=== PATIENT | male | born 1960 | race Caucasian/White ===

== ENCOUNTER 2016-09-28 12:24 | Inpatient (IN) | payer MEDICAID ==
[~2016-09-28] VITALS: Ht 170.2 cm; Wt 70.5 kg
[2016-09-28 12:42] LABS: GLUCOSE,POINT OF CARE 127 MG/DL (70-110)
[2016-09-28] MEDS ORDERED: LORazepam 2 MG/ML VIAL IM ONE (14:45)
[2016-09-28 15:31] LABS: ANION GAP 16 mmol/L (8-16); CALCIUM, TOTAL 9.9 mg/dL (8.8-10.5); CARBON DIOXIDE 24 mmol/L (22-29); CHLORIDE 97 mmol/L (98-107); CREATININE 0.75 mg/dL (0.60-1.30); GLOMERULAR FILTR. RATE CALC > 60 mL/min (>60); POTASSIUM 4.4 mmol/L (3.5-5.1); SODIUM SERUM 137 mmol/L (136-145); UREA NITROGEN, BLOOD 14 mg/dL (7-18)
[2016-09-28 15:40] LABS: ALANINE AMINOTRANSFERASE 18 U/L (12-78); ALBUMIN 4.5 g/dL (3.4-5.0); ASPARTATE AMINOTRANSFERASE 33 U/L (15-37); BILIRUBIN,TOTAL 0.6 mg/dL (0.1-1.0)
[2016-09-28 16:13] LABS: EOSINOPHILS % (AUTO) 0.2 % (1.0-6.0); HEMATOCRIT 50.5 % (41-53); HEMOGLOBIN 16.8 g/dL (13.5-17.5); LYMPHOCYTES # (AUTO) 0.8 K/uL (1.0-4.8); LYMPHOCYTES % (AUTO) 5.6 % (22.0-44.0); MEAN CORPUSCULAR HEMOGLOBIN 29.6 pg (26.0-34.0); MEAN CORPUSCULAR HGB CONC 33.3 G/dL (31.0-37.0); MEAN CORPUSCULAR VOLUME 89 fL (80-100); MONOCYTES # (AUTO) 0.2 K/uL (0.1-1.0); MONOCYTES % (AUTO) 1.5 % (2.0-9.0); NEUTROPHILS # (AUTO) 13.7 K/uL (1.8-7.7); PLATELET COUNT (AUTO) 225 K/uL (150-450); RED BLOOD CELL COUNT(AUTO) 5.68 MIL/uL (4.50-5.90); RED CELL DISTRIBUTION WIDTH 14.7 % (11.5-14.5); WHITE BLOOD COUNT (AUTO) 14.8 K/uL (4.5-11.0)
[2016-09-28 16:42] LABS: NEUTROPHILS % (AUTO) 92.7 % (40.0-70.0)
[2016-09-28] MEDS ORDERED: LevETIRAcetam 1,000 MG in DEXTROSE 5%-WATER 100 ML IV ONE (16:45)
[2016-09-28] MEDS ORDERED: LevETIRAcetam 500 MG TABLET PO ONE (17:00)
[2016-09-28] MEDS ORDERED: ONDANSETRON HCL 4 MG/2 ML VIAL IVP PRN ×2 (19:15→20:00)
[2016-09-28] MEDS ORDERED: ACETAMINOPHEN 325 MG TABLET PO PRN ×2 (19:15→20:00)
[2016-09-28] MEDS ORDERED: 0.9% SODIUM CHLORIDE 10 ML SYRINGE IVP PRN (19:15)
[2016-09-28] MEDS ORDERED: MAGNESIUM SULFATE 2 GM in DEXTROSE 5%-WATER 50 ML IV PRN (20:00)
[2016-09-28] MEDS ORDERED: ALBUTEROL SULFATE 2.5 MG/0.5 ML NEB SOLUTION NEB PRN (20:00)
[2016-09-28] MEDS ORDERED: POTASSIUM CHLORIDE 20 MEQ ER TABLET PO PRN (20:00)
[2016-09-28] MEDS ORDERED: IPRATROPIUM BROMIDE 0.5 MG/2.5 ML NEB SOLUTION NEB PRN (20:00)
[2016-09-28] MEDS ORDERED: MAGNESIUM SULFATE 4 GM/WATER 100 ML IV PRN (20:00)
[2016-09-28] MEDS ORDERED: BISACODYL 10 MG RECTAL RECTAL SUPPOSITORY PR PRN (20:00)
[2016-09-28] MEDS ORDERED: MAGNESIUM OXIDE 400 MG TABLET PO PRN (20:00)
[2016-09-28] MEDS ORDERED: MAGNESIUM HYDROXIDE SUSPENSION 30 ML UDCUP PO PRN (20:00)
[2016-09-28] MEDS ORDERED: POTASSIUM CHL 10 MEQ/WATER 50 ML IV PRN (20:00)
[2016-09-28] MEDS ORDERED: CloNIDine HCL 0.1 MG TABLET PO PRN (20:00)
[2016-09-28 21:06] VITALS: BP 153/81
[2016-09-29] VITALS (9 sets, daily range): BP systolic 146–172; BP diastolic 85–121
[2016-09-29] MEDS: HEPARIN SODIUM,PORCINE 5,000 UNITS/ML VIAL SQ SCH ×3 (00:10→20:10)
[2016-09-29] MEDS: ZOLPIDEM TARTRATE 5 MG TABLET PO PRN ×2 (00:39→22:28)
[2016-09-29] MEDS ORDERED: ChlordiazePOXIDE HCL 25 MG CAPSULE PO PRN (03:00)
[2016-09-29] MEDS: LevETIRAcetam 500 MG TABLET PO SCH ×2 (09:10→20:09)
[2016-09-29] MEDS: PANTOPRAZOLE SODIUM 40 MG DR TABLET PO SCH (09:11)
[2016-09-29 10:19] LABS: BASOPHILS % (AUTO) 0.4 % (0.0-2.0); EOSINOPHILS % (AUTO) 0.2 % (1.0-6.0); HEMATOCRIT 53.2 % (41-53); HEMOGLOBIN 17.9 g/dL (13.5-17.5); LYMPHOCYTES # (AUTO) 1.4 K/uL (1.0-4.8); LYMPHOCYTES % (AUTO) 8.2 % (22.0-44.0); MEAN CORPUSCULAR HGB CONC 33.7 G/dL (31.0-37.0); MEAN CORPUSCULAR VOLUME 89 fL (80-100); MONOCYTES # (AUTO) 0.7 K/uL (0.1-1.0); MONOCYTES % (AUTO) 3.9 % (2.0-9.0); NEUTROPHILS # (AUTO) 14.5 K/uL (1.8-7.7); PLATELET COUNT (AUTO) 222 K/uL (150-450); RED BLOOD CELL COUNT(AUTO) 5.97 MIL/uL (4.50-5.90); RED CELL DISTRIBUTION WIDTH 14.6 % (11.5-14.5); WHITE BLOOD COUNT (AUTO) 16.6 K/uL (4.5-11.0)
[2016-09-29 10:23] LABS: NEUTROPHILS % (AUTO) 87.3 % (40.0-70.0); RBC MORPHOLOGY COMMENT NORMAL RBC MORPH
[2016-09-29 10:28] LABS: ANION GAP 14 mmol/L (8-16); CARBON DIOXIDE 24 mmol/L (22-29); CHLORIDE 95 mmol/L (98-107); POTASSIUM 3.1 mmol/L (3.5-5.1); SODIUM SERUM 133 mmol/L (136-145)
[2016-09-29 10:33] LABS: HEMOGLOBIN A1C 5.6 % (4.5-6.2)
[2016-09-29 10:41] LABS: ALANINE AMINOTRANSFERASE 23 U/L (12-78); ASPARTATE AMINOTRANSFERASE 73 U/L (15-37); BILIRUBIN,TOTAL 0.7 mg/dL (0.1-1.0); CALCIUM, TOTAL 9.2 mg/dL (8.8-10.5); GLOMERULAR FILTR. RATE CALC > 60 mL/min (>60); PHOSPHORUS 2.9 mg/dL (2.5-4.9); TOTAL PROTEIN, SERUM 8.5 g/dL (6.4-8.2); UREA NITROGEN, BLOOD 18 mg/dL (7-18)
[2016-09-29] MEDS: METHADONE HCL 10 MG TABLET PO SCH (12:20)
[2016-09-29] MEDS ORDERED: NIFEdipine 30 MG ER TABLET PO ONE (12:45)
[2016-09-29] MEDS: SODIUM CHLORIDE 0.9% 1,000 ML IV SCH (15:30)
[2016-09-29] MEDS: OxyCODONE HCL/ACETAMINOPHEN 5-325 MG TABLET PO PRN (20:10)
[2016-09-30] MEDS: SODIUM CHLORIDE 0.9% 1,000 ML IV SCH ×2 (03:40→15:25)
[2016-09-30 05:19] VITALS: BP 146/108
[2016-09-30] MEDS: OxyCODONE HCL/ACETAMINOPHEN 5-325 MG TABLET PO PRN (05:38)
[2016-09-30] MEDS ORDERED: ChlordiazePOXIDE HCL 25 MG CAPSULE PO PRN (07:00)
[2016-09-30] MEDS: METHADONE HCL 10 MG TABLET PO SCH (08:21)
[2016-09-30] MEDS: LevETIRAcetam 500 MG TABLET PO SCH (08:21)
[2016-09-30] MEDS: ChlordiazePOXIDE HCL 25 MG CAPSULE PO SCH ×3 (08:21→16:30)
[2016-09-30] MEDS: PANTOPRAZOLE SODIUM 40 MG DR TABLET PO SCH (08:21)
[2016-09-30] MEDS: HEPARIN SODIUM,PORCINE 5,000 UNITS/ML VIAL SQ SCH (08:22)
[2016-09-30 08:44] VITALS: BP 154/111
[2016-09-30] MEDS ORDERED: NIFEdipine 30 MG ER TABLET PO SCH (09:00)
[2016-09-30 09:46] LABS: APPEARANCE,URINE CLOUDY (CLEAR); GLUCOSE, URINE (UA) NEGATIVE (NEGATIVE); KETONES,URINE 15 mg/dL (NEGATIVE); LEUKOCYTE ESTERASE ,URINE NEGATIVE (NEGATIVE); OCCULT BLOOD,URINE MODERATE (NEGATIVE); PROTEIN,URINE SEE CONFIRM (NEGATIVE)
[2016-09-30 10:02] LABS: ADD UA MICROSCOPIC YES; SULFOSALICYLIC ACID,URINE 2+ (Negative)
[2016-09-30 10:04] LABS: SQUAMOUS EPITHELIAL CELL,UR Moderate /LPF (None Seen); WBC,URINE None Seen /HPF (0-5)
[2016-09-30 16:18] VITALS: BP 131/91
[2016-09-30] MEDS ORDERED: LEVE500T8 PO (16:44)
[2016-09-30] MEDS ORDERED: NIFE30TA5 PO (16:45)
[2016-09-30] MEDS ORDERED: PANT40TA25 PO ×2 (16:47→16:52)
[2016-09-30] MEDS ORDERED: BACTDSB PO (16:49)
[2016-09-30] MEDS ORDERED: METH10 PO (16:52)
[2016-10-02] MEDS ORDERED: ChlordiazePOXIDE HCL 10 MG CAPSULE PO PRN (07:00)
[2016-10-02] MEDS ORDERED: ChlordiazePOXIDE HCL 10 MG CAPSULE PO SCH (09:00)
[2016-10-03] MEDS ORDERED: ChlordiazePOXIDE HCL 10 MG CAPSULE PO PRN (07:00)
== END 2016-09-30 19:40 | disposition home or self-care (01) | DRG 53 ==
LOC: EDUNIT# 12:24 → EMS 12:28 → 6N 20:13
PROVIDERS: ADMIT Internal Medicine; ATTEND Internal Medicine
DX: G40.909 Epilepsy, unspecified, not intractable, without status epilepticus (principal); E11.649 Type 2 diabetes mellitus with hypoglycemia without coma; S09.90XA Unspecified injury of head, initial encounter; F11.10 Opioid abuse, uncomplicated; B18.2 Chronic viral hepatitis C; E87.1 Hypo-osmolality and hyponatremia; E87.6 Hypokalemia; I10 Essential (primary) hypertension; Z72.0 Tobacco use; Z71.6 Tobacco abuse counseling; Z72.89 Other problems related to lifestyle; Z71.41 Alcohol abuse counseling and surveillance of alcoholic
CPT/HCPCS: 70450; 82962; 83036; 83735; 84100; 84132; 93005; 95816; 96372; 99285; G0480; G0482; J0712; J1644; J2060; J3475; J7030; J7060

== ENCOUNTER 2017-05-24 06:20 | Emergency (ER) | payer MEDICAID ==
[~2017-05-24] VITALS: Ht 182.9 cm; Wt 75.0 kg
[~2017-05-24 06:20] MED LIST: BACTDSB PO; LEVE500T8 PO; METH10 PO; NIFE30TA5 PO; PANT40TA25 PO
[2017-05-24] MEDS ORDERED: LISI-662 PO (06:29)
[2017-05-24] MEDS ORDERED: CLON-570 PO (06:29)
[2017-05-24 07:46] LABS: BASOPHILS % (AUTO) 0.2 % (0.0-2.0); EOSINOPHILS % (AUTO) 0.4 % (1.0-6.0); HEMATOCRIT 46.3 % (41-53); HEMOGLOBIN 15.7 g/dL (13.5-17.5); LYMPHOCYTES # (AUTO) 1.3 K/uL (1.0-4.8); LYMPHOCYTES % (AUTO) 19.8 % (22.0-44.0); MEAN CORPUSCULAR HEMOGLOBIN 29.9 pg (26.0-34.0); MEAN CORPUSCULAR HGB CONC 33.8 G/dL (31.0-37.0); MEAN CORPUSCULAR VOLUME 88 fL (80-100); MONOCYTES # (AUTO) 0.3 K/uL (0.1-1.0); MONOCYTES % (AUTO) 5.2 % (2.0-9.0); NEUTROPHILS % (AUTO) 74.4 % (40.0-70.0); PLATELET COUNT (AUTO) 190 K/uL (150-450); RED BLOOD CELL COUNT(AUTO) 5.24 MIL/uL (4.50-5.90); RED CELL DISTRIBUTION WIDTH 13.7 % (11.5-14.5)
[2017-05-24 08:08] LABS: ANION GAP 5 mmol/L (8-16); CALCIUM, TOTAL 9.4 mg/dL (8.8-10.5); CARBON DIOXIDE 32 mmol/L (22-29); CHLORIDE 101 mmol/L (98-107); CREATININE 1.02 mg/dL (0.60-1.30); GLOMERULAR FILTR. RATE CALC > 60 mL/min (>60); GLUCOSE,RANDOM 100 mg/dL (70-110); POTASSIUM 3.8 mmol/L (3.5-5.1); SODIUM SERUM 138 mmol/L (136-145); UREA NITROGEN, BLOOD 23 mg/dL (7-18)
[2017-05-24 08:23] LABS: ALANINE AMINOTRANSFERASE 17 U/L (12-78); ALKALINE PHOSPHATASE 76 U/L (46-116); ASPARTATE AMINOTRANSFERASE 20 U/L (15-37); BILIRUBIN,TOTAL 0.4 mg/dL (0.1-1.0); TOTAL PROTEIN, SERUM 8.2 g/dL (6.4-8.2)
[2017-05-24 08:42] VITALS: BP 129/82
== END 2017-05-24 08:58 | disposition home or self-care (01) ==
LOC: EMS 06:20
DX: R53.1 Weakness (principal); F14.10 Cocaine abuse, uncomplicated; B19.20 Unspecified viral hepatitis C without hepatic coma; E11.9 Type 2 diabetes mellitus without complications; G40.909 Epilepsy, unspecified, not intractable, without status epilepticus; I10 Essential (primary) hypertension; F17.210 Nicotine dependence, cigarettes, uncomplicated
CPT/HCPCS: 99285